=== PATIENT | female | born 1965 | race Two or more races ===

== ENCOUNTER 2019-05-13 07:48 | Inpatient (IN) | payer OTHER ==
[~2019-05-13] VITALS: Ht 154.9 cm; Wt 65.3 kg
[~2019-05-13 07:48] MED LIST: ATROVENT 00.5 MG/2.5 IH; PHENAGIL TABLE1 EACH PO; SINGULAIR 10MG10 MG PO
[2019-05-13] MEDS ORDERED: LIPITOR40 MG (07:51)
== END 2019-05-17 12:08 | disposition home or self-care (01) | DRG 392 ==
LOC: ER 07:48 → MEDJ 18:08
PROVIDERS: ADMIT Internal Medicine Cardiovascular Disease
PROC: BW21Y0Z Computerized Tomography (CT Scan) of Abdomen and Pelvis using Other Contrast, Unenhanced and Enhanced (ICD-10-PCS; principal; 2019-05-13)
DX: K57.32 Diverticulitis of large intestine without perforation or abscess without bleeding (principal); K29.00 Acute gastritis without bleeding; R10.32 Left lower quadrant pain

== ENCOUNTER 2021-01-28 07:02 | Emergency (ER) | payer OTHER ==
[~2021-01-28] VITALS: Ht 152.4 cm; Wt 66.2 kg
[~2021-01-28 07:02] MED LIST changes: +LIPITOR40 MG
[2021-01-28] MEDS ORDERED: GEMFIBROZIL600 MG PO (07:19)
[2021-01-28] MEDS ORDERED: ROSUVASTATIN CA40 MG PO (07:19)
[2021-01-28] MEDS ORDERED: MAXIMUM D3325 MCG PO (07:20)
[2021-01-28] MEDS ORDERED: HYOSCYAMINE0.125 M1 PO (07:20)
== END 2021-01-28 18:18 | disposition home or self-care (01) ==
LOC: ER 07:02
DX: K57.92 Diverticulitis of intestine, part unspecified, without perforation or abscess without bleeding (principal); R10.32 Left lower quadrant pain